=== PATIENT | female | born 1980 | race African-American/Black ===

== ENCOUNTER 2020-11-08 06:27 | Emergency (ER) | payer OTHER ==
[~2020-11-08] VITALS: Ht 160 cm; Wt 68.0 kg
[2020-11-08] MEDS ORDERED: NORVASC5 MG PO (06:40)
[2020-11-08] MEDS ORDERED: BUSPIRONE HCL10 MG PO (06:40)
[2020-11-08 07:44] VITALS: BP 130/85
== END 2020-11-08 07:40 | disposition home or self-care (01) ==
LOC: ER 06:27
DX: S80.11XA Contusion of right lower leg, initial encounter (principal); Z90.711 Acquired absence of uterus with remaining cervical stump; Z79.899 Other long term (current) drug therapy; W20.8XXA Other cause of strike by thrown, projected or falling object, initial encounter; Y93.89 Activity, other specified; Y92.89 Other specified places as the place of occurrence of the external cause; Y99.8 Other external cause status

== ENCOUNTER 2020-11-24 17:46 | Emergency (ER) | payer OTHER ==
[~2020-11-24] VITALS: Ht 157.5 cm; Wt 67.1 kg
[~2020-11-24 17:46] MED LIST: BUSPIRONE HCL10 MG PO; NORVASC5 MG PO
[2020-11-24 19:54] LABS: URINE BILIRUBIN NEGATIVE (Negative); URINE BLOOD 2+ (Negative); URINE CLARITY CLEAR; URINE COLOR YELLOW; URINE GLUCOSE-RANDOM* NEGATIVE (Negative); URINE KETONES 1+ (Negative); URINE LEUKOCYTES-REFLEX NEGATIVE (Negative); URINE NITRITE-REFLEX NEGATIVE (Negative); URINE PROTEIN (DIPSTICK) NEGATIVE (Negative); URINE UROBILINOGEN 0.2 E.U./dl (0.2-1.0)
[2020-11-24 20:32] LABS: CASTS None Seen /LPF (None Seen); SQUAMOUS 0-3 Few /LPF (0-3); URINE WBC-REFLEX None Seen /HPF (0-5)
[2020-11-24 20:34] LABS: BACTERIA-REFLEX 1-9 Few /HPF (None Seen); URINE RBC 3-10 Few /HPF (NONE SEEN)
[2020-11-24 20:50] LABS: CRYSTALS None Seen /LPF (None Seen)
[2020-11-24] MEDS ORDERED: KEFLEX750 MG PO (20:56)
[2020-11-24] MEDS ORDERED: TYLENOL325 M1 PO (20:56)
[2020-11-24] MEDS ORDERED: FLAGYL500 M1 PO (20:56)
[2020-11-24 22:55] VITALS: BP 140/80
== END 2020-11-24 21:45 | disposition home or self-care (01) ==
LOC: ER 17:46
PROVIDERS: Emergency Medicine
DX: N76.0 Acute vaginitis (principal); N39.0 Urinary tract infection, site not specified; F17.210 Nicotine dependence, cigarettes, uncomplicated; I10 Essential (primary) hypertension; Z90.710 Acquired absence of both cervix and uterus; Z79.899 Other long term (current) drug therapy